=== PATIENT | male | born 1960 ===

== ENCOUNTER 2018-12-11 08:56 | Day surgery (SDC) | payer OTHER ==
[2018-12-11 09:10] VITALS: BMI 19.1
[2018-12-11] MEDS ORDERED: Lactated Ringer's 500 ML IV SCH (12:00)
[2018-12-11] MEDS ORDERED: Lactated Ringer's 500 ML IV ONE (12:32)
[2018-12-11] MEDS ORDERED: Propofol 10 mg/ml Inj (20 ML) ONE (12:34)
[2018-12-11 13:35] VITALS: RESP 16; TEMP 99.1; O2SAT 99
[2018-12-11 13:42] VITALS: BP 121/80; PULSE 72
--- NOTE | 2018-12-13 15:51 | CARD ---
APPROVED REPORT Date of service: 12/11/2018 EKG Measurement Heart [id number] <Conclusion> Normal sinus rhythm Septal infarct, age undetermined Abnormal ECG
== END 2018-12-11 13:40 | disposition home or self-care (01) ==
LOC: C.ENDO 08:56
PROVIDERS: ATTEND Internal Medicine Gastroenterology
DX: Z12.11 Encounter for screening for malignant neoplasm of colon (principal); D12.3 Benign neoplasm of transverse colon; K64.8 Other hemorrhoids
CPT/HCPCS: 45385; 82948; 88305; 93005; J2704; J7120